=== PATIENT | female | born 2000 | race Caucasian/White ===

== ENCOUNTER 2021-10-27 12:11 | Emergency (ER) | payer OTHER ==
[2021-10-27] MEDS ORDERED: BEBTELOVIMAB 175 MG/2 ML VIAL IV ONE (16:45)
--- NOTE | 2021-10-27 17:23 | EDPHYS ---
Physician Documentation [facility] Name: Portillo Portillo Age: 21 yrs Sex: Female : 2000 Arrival Date: 10/27/2021 Time: 12:14 Bed DIS2 Private MD: ED Physician Alexis Lopez HPI: 10/27 16:00 This 21 yrs old Female presents to ER via Ambulatory with complaints of antibodies. cp 16:00 The patient or guardian reports cough, that is intermittent, with no sputum. Onset: The cp symptoms/episode began/occurred 2 day(s) ago. Associated signs and symptoms: Pertinent negatives: chest pain, diarrhea, fever, vomiting. 16:00 Severity of symptoms: in the emergency department the symptoms are unchanged despite cp home interventions. Patient reports she recently tested positive for COVID-19 and was referred to ED by DR Wade to be given antibody treatment. RN NICU: 14:38 LMP N/A - Recent vg1 Historical: - Allergies: 14:38 No Known Allergies; vg1 - Home Meds: 14:38 None [Active]; vg1 - PMHx: 14:38 None; vg1 - PSHx: 14:38 None; vg1 - Immunization history:: Client reports having NOT received the Covid vaccine. - Social history:: Smoking status: Patient denies any tobacco usage or history of. ROS: 16:05 Constitutional: Negative for body aches, chills, fever, poor PO intake. cp 16:05 Eyes: Negative for injury, pain, redness, and discharge. cp 16:05 ENT: Negative for drainage from ear(s), ear pain, sore throat, difficulty swallowing, difficulty handling secretions. 16:05 Cardiovascular: Negative for chest pain. 16:05 Respiratory: Negative for cough, shortness of breath, wheezing. 16:05 Abdomen/GI: Negative for abdominal pain, nausea, vomiting, and diarrhea. 16:05 Neuro: Negative for altered mental status, dizziness, headache, syncope, weakness. 16:05 All other systems are negative. Exam: 16:10 Constitutional: The patient appears in no acute distress, alert, awake, comfortable, cp non-toxic, well developed, well nourished. 16:10 Head/Face: Normocephalic, atraumatic. cp 16:10 Eyes: Periorbital structures: appear normal, Conjunctiva: normal, no exudate, no injection, Sclera: no appreciated abnormality, Lids and lashes: appear normal, bilaterally. 16:10 ENT: External ear(s): are unremarkable, Nose: is normal, Mouth: Lips: moist, Oral mucosa: pink and intact, moist, Posterior pharynx: Airway: no evidence of obstruction, patent, Tonsils: are normal in appearance. 16:10 Neck: ROM/movement: is normal, is supple, without pain, no range of motions limitations, no meningismus. 16:10 Chest/axilla: Inspection: normal. 16:10 Cardiovascular: Rate: normal, Rhythm: regular. 16:10 Respiratory: the patient does not display signs of respiratory distress, Respirations: normal, no use of accessory muscles, no retractions, labored breathing, is not present, Breath sounds: are clear throughout, no decreased breath sounds, no stridor, no wheezing. 16:10 Abdomen/GI: Exam negative for discomfort, distension, guarding, Inspection: abdomen appears normal. 16:10 Skin: no rash present. 16:10 Neuro: Orientation: to person, place \T\ time. Mentation: is normal, Motor: moves all fours, strength is normal, Gait: is steady, at a normal pace, without difficulty. Vital Signs: 14:37 BP 120 / 80; Pulse 70; Resp 16; Temp 98.2(TE); Pulse Ox 100% ; Weight 63.5 kg; Height 5 vg1 ft. 5 in. (165.10 cm); Pain 4/10; 14:37 Body Mass Index 23.30 (63.50 kg, 165.10 cm) vg1 MDM: 15:25 Patient medically screened. cp 16:15 Differential diagnosis: bronchitis, flu, pneumonia. cp 16:15 ED course: Obtained verbal consent from patient to order and give IV Bebtelovimab. cp Patient understands that Bebtelovimab has been FDA authorized for emergency use for COVID-19 positive patients. Patient understands it is an investigational drug and not approved for any treatment. 17:22 Data reviewed: vital signs, nurses notes. cp 17:22 Counseling: I had a detailed discussion with the patient and/or guardian regarding: the cp historical points, exam findings, and any diagnostic results supporting the discharge/admit diagnosis, the need for outpatient follow up, a family practitioner, to return to the emergency department if symptoms worsen or persist or if there are any questions or concerns that arise at home. Administered Medications: 17:16 Drug: bebtelovimab 175 mg Route: IV; Rate: calculated rate; Site: right antecubital; jb4 17:17 Follow up: IV Status: Completed infusion jb4 Disposition Summary: 10/27/21 17:22 Discharge Ordered Location: Home cp Problem: new cp Symptoms: have improved cp Condition: Stable cp Diagnosis - SARS-associated coronavirus as the cause of diseases classified elsewhere cp Followup: cp - With: Private Physician - When: 1 - 2 days - Reason: Recheck today's complaints Discharge Instructions: - Discharge Summary Sheet cp - Aspirin and Your Heart cp - COVID-19 cp - Things to Know about the COVID-19 Pandemic - [facility] cp - 10 Things You Can Do to Manage Your COVID-19 Symptoms at Home - [facility] cp - COVID-19: Quarantine vs. Isolation - [facility] cp - Prevent the Spread of COVID-19 if You Are Sick - [facility] cp Forms: - Medication Reconciliation Form cp - Thank You Letter cp - Antibiotic Education cp - Prescription Opioid Use cp Signatures: Seamus Christopher PA PA cp Alcides Howe RN RN jb4 Donna John RN RN vg1 Corrections: (The following items were deleted from the chart) 10/28 17:38 10/27 16:15 ED course: Obtained verbal consent from patient to order and give IV cp Bebtelovimab. Patient understands that Bebtelovimab has been FDA authorized for emergency use for COVID-19 positive patients. cp
--- NOTE | 2021-10-27 17:23 | ER ---
Nurse's Notes [facility] Name: Portillo Portillo Age: 21 yrs Sex: Female : 2000 Arrival Date: 10/27/2021 Time: 12:14 Bed DIS2 Private MD: Diagnosis: SARS-associated coronavirus as the cause of diseases classified elsewhere Presentation: 10/27 14:37 Chief complaint: Patient states: Tested COVID POSITIVE x2 days ago; cough, sore throat, vg1 and headache; saw PCP earlier today and was told to come to ED to received antibodies. Coronavirus screen: Vaccine status: Patient reports being unvaccinated. Client denies travel out of the [place] in the last 14 days. Ebola Screen: Patient denies exposure to infectious person. Patient denies travel to an Ebola-affected area in the 21 days before illness onset. Initial Sepsis Screen: Does the patient meet any 2 criteria? No. Patient's initial sepsis screen is negative. Does the patient have a suspected source of infection? No. Patient's initial sepsis screen is negative. Risk Assessment: Do you want to hurt yourself or someone else? Patient reports no desire to harm self or others. Onset of symptoms was October 25, 2021. 14:37 Method Of Arrival: Ambulatory vg1 14:37 Acuity: BERT 4 vg1 Triage Assessment: 14:38 General: Appears in no apparent distress. uncomfortable, Behavior is calm, cooperative. vg1 Pain: Complains of pain in head and throat Pain currently is 4 out of 10 on a pain scale. Respiratory: Airway is patent Respiratory effort is even, unlabored. [employer]: 14:38 LMP N/A - Recent vg1 Historical: - Allergies: 14:38 No Known Allergies; vg1 - Home Meds: 14:38 None [Active]; vg1 - PMHx: 14:38 None; vg1 - PSHx: 14:38 None; vg1 - Immunization history:: Client reports having NOT received the Covid vaccine. - Social history:: Smoking status: Patient denies any tobacco usage or history of. Screenin:30 Abuse screen: Denies threats or abuse. Nutritional screening: No deficits noted. jb4 Tuberculosis screening: No symptoms or risk factors identified. Fall Risk None identified. Assessment: 15:30 General: Appears in no apparent distress. comfortable, Behavior is calm, cooperative, jb4 appropriate for age. Pain: Denies pain. Neuro: Level of Consciousness is awake, alert, obeys commands, Oriented to person, place, time, situation. Cardiovascular: Patient's skin is warm and dry. Respiratory: Airway is patent Respiratory effort is even, unlabored, Respiratory pattern is regular, symmetrical. GI: No signs and/or symptoms were reported involving the gastrointestinal system. : No signs and/or symptoms were reported regarding the genitourinary system. EENT: No signs and/or symptoms were reported regarding the EENT system. Derm: Skin is intact, Skin is pink, warm \T\ dry. Musculoskeletal: Circulation, motion, and sensation intact. Range of motion: intact in all extremities. 17:47 Reassessment: Patient appears in no apparent distress at this time. Patient and/or jb4 family updated on plan of care and expected duration. Pain level reassessed. Patient is alert, oriented x 3, equal unlabored respirations, skin warm/dry/pink. D/c pending observation after Antibody injection. 18:26 Reassessment: Patient appears in no apparent distress at this time. Patient and/or jb4 family updated on plan of care and expected duration. Pain level reassessed. Patient is alert, oriented x 3, equal unlabored respirations, skin warm/dry/pink. Vital Signs: 14:37 BP 120 / 80; Pulse 70; Resp 16; Temp 98.2(TE); Pulse Ox 100% ; Weight 63.5 kg; Height 5 vg1 ft. 5 in. (165.10 cm); Pain 4/10; 14:37 Body Mass Index 23.30 (63.50 kg, 165.10 cm) vg1 ED Course: 12:14 Patient arrived in ED. as 12:58 Seamus Christopher PA is PHCP. cp 12:59 Alexis Lopez MD is Attending Physician. cp 14:38 Triage completed. vg1 14:38 Arm band placed on. vg1 15:23 Alcides Howe, WALLY is Primary Nurse. jb4 15:30 Patient has correct armband on for positive identification. Bed in low position. Call jb4 light in reach. Side rails up X 1. 15:50 Inserted saline lock: 20 gauge in right antecubital area, using aseptic technique. jb4 18:26 No provider procedures requiring assistance completed. IV discontinued, intact, jb4 bleeding controlled, No redness/swelling at site. Pressure dressing applied. Administered Medications: 17:16 Drug: bebtelovimab 175 mg Route: IV; Rate: calculated rate; Site: right antecubital; jb4 17:17 Follow up: IV Status: Completed infusion jb4 Outcome: 17:22 Discharge ordered by . rena 18:26 Discharged to home ambulatory, with family. jb4 18:26 Condition: stable 18:26 Discharge instructions given to patient, Instructed on discharge instructions, follow up and referral plans. Demonstrated understanding of instructions, follow-up care. 18:27 Patient left the ED. jb4 Signatures: Elisa Galvan Corey, PA PA cp Bryson, James, WALLY RN jb4 Donna John RN RN vg1
[2021-10-28 12:24] VITALS: BP 120/80; TEMP 98.2; O2SAT 100
== END 2021-10-27 18:27 | disposition home or self-care (01) ==
LOC: ER 12:11
DX: U07.1 COVID-19 (principal)
CPT/HCPCS: 99283